=== PATIENT | female | born 1990 | race Caucasian/White ===

== ENCOUNTER 2017-01-10 14:05 | Emergency (ER) | payer MEDICAID ==
[~2017-01-10] VITALS: Ht 157.5 cm; Wt 64.0 kg
[2017-01-10 14:08] VITALS: Ht 157.5 cm; Wt 64.0 kg
[2017-01-10] MEDS ORDERED: ONDANSETRON 4 MG INJ IV STA (15:35)
[2017-01-10] MEDS ORDERED: DICYCLOMINE 10 MG CAP PO ONE (16:00)
[2017-01-10] MEDS ORDERED: SOD CHLORIDE 0.9% 1,000 ML IV ONE (16:00)
[2017-01-10 16:30] LABS: ADD SCAN DIFF NO
[2017-01-10 16:33] LABS: BASOPHILS % 0.3 % (0.0-2.0); EOSINOPHILS # 0.1 10^3/ul (0.0-0.5); EOSINOPHILS % 1.5 % (0.0-7.0); HEMATOCRIT 44.9 % (37.0-47.0); HEMOGLOBIN 14.6 g/dl (12.0-16.0); LYMPHOCYTES # 1.3 10^3/ul (0.8-2.9); LYMPHOCYTES % 15.2 % (15.0-51.0); MEAN CORPUSCULAR HEMOGLOBIN 28.6 pg (29.0-33.0); MEAN CORPUSCULAR HGB CONC 32.5 g/dl (32.0-37.0); MEAN CORPUSCULAR VOLUME 87.9 fl (82.0-101.0); MONOCYTE # 0.8 10^3/ul (0.3-0.9); MONOCYTES % 9.4 % (0.0-11.0); NEUTROPHIL # 6.3 10^3/ul (1.6-7.5); NEUTROPHILS % 73.3 % (39.0-77.0); PLATELET COUNT 330 10^3/UL (140-415); RED BLOOD COUNT 5.11 10^6/ul (4.20-5.40); WHITE BLOOD COUNT 8.7 10^3/ul (4.8-10.8)
[2017-01-10 16:36] LABS: ADD UMIC YES; URINE BILIRUBIN (Dip) NEGATIVE (NEGATIVE); URINE BLOOD (Dip) TRACE (NEGATIVE); URINE COLOR LT. YELLOW (YELLOW); URINE GLUCOSE (Dip) NEGATIVE (NEGATIVE); URINE KETONES (Dip) NEGATIVE (NEGATIVE); URINE LEUKOCYTE ESTERASE (Dip) 1+ (NEGATIVE); URINE NITRITE (Dip) NEGATIVE (NEGATIVE); URINE TOTAL PROTEIN (Dip) NEGATIVE (NEGATIVE); URINE UROBILINOGEN (Dip) 0.2 E.U./dL (0.1-1.0)
[2017-01-10 16:53] LABS: ALBUMIN 5.2 g/dl (3.3-4.9); ALBUMIN/GLOBULIN RATIO 1.4; BILIRUBIN,INDIRECT 0.3 mg/dl (0-1.1); BILIRUBIN,TOTAL 0.3 mg/dl (0.2-1.3); CALCIUM 9.5 mg/dl (8.4-10.2); CREATININE 0.74 mg/dl (0.44-1.00); POTASSIUM 3.8 mmol/L (3.5-5.1); TOTAL PROTEIN 8.9 g/dl (6.1-8.1)
[2017-01-10 16:59] LABS: SQUAMOUS EPITHELIAL CELL,UR MODERATE; URINE RBCS NONE SEEN /HPF (0)
[2017-01-10] MEDS ORDERED: NITR-58 PO (17:31)
[2017-01-10] MEDS ORDERED: DICY10CA60 PO (17:32)
[2017-01-10] MEDS ORDERED: ONDA-43 PO (17:32)
--- NOTE | 2017-01-10 17:39 | ERD ---
ER Documentation Chief Complaint Date/Time DATE: 01/10/17 TIME: 17:36 Chief Complaint n/v/d x 2 days not alliviated by over the counter meds HPI This is a 18-year-old female presents to the ER with nausea vomiting diarrhea for the last 2 days. Vomiting is nonbilious nonbloody. Diarrhea is watery with no blood in it. Patient to try [id number] antidiarrheal meds however they did not work. Patient states that today she feels dizzy and weak. Patient denies any fevers or chills. She does admit to body pain. She has not traveled anywhere. ROS 12 point review of systems was done, all negative except per HPI. Medications Home Meds Active Scripts Dicyclomine Hcl* (Bentyl*) 10 Mg Capsule, 10 MG PO QID for 7 Days, CAP Prov:MAGY DUNBAR 01/10/17 Ondansetron Hcl* (Zofran*) 4 Mg Tab, 4 MG PO Q4H Y for NAUSEA AND OR VOMITING for 3 Days, TAB Prov:MAGY DUNBAR 01/10/17 Nitrofurantoin Monohyd Macrocr* (Macrobid*) 100 Mg Capsr, 100 MG PO BID for 7 Days, CAP Prov:MAGY DUNBAR 01/10/17 PMhx/Soc History of Surgery: Yes (c/s appendix) Hx Respiratory Disorders: Yes (asthma) Hx Miscellaneous Medical Probl: Yes (hypothyroid) Hx Alcohol Use: No Hx Substance Use: No Hx Tobacco Use: No Smoking Status: Never smoker Physical Exam Vitals Vital Signs Date Time Temp Pulse Resp B/P Pulse Ox O2 Delivery O2 Flow Rate FiO2 01/10/17 14:08 98.5 76 18 109/75 99 Physical Exam GENERAL: The patient is well-developed, well-nourished, in no acute distress. NECK: Cervical spine is non tender with no step off. Supple, no nuchal rigidity HEENT: Atraumatic. Pupils equal, round and reactive to light. Extraocular muscles are grossly intact. Conjunctivae pink, no discharge. The oropharynx is clear with no erythema or exudates and the mucosa is moist. No signs of dehydration. RESPIRATORY: Clear to auscultation bilaterally. There are no rales, wheezes or rhonchi. HEART: Regular rate and rhythm. No murmurs, clicks, rubs or gallops. ABDOMEN: Soft, nontender, nondistended. Active bowel sounds in all 4 quadrants. No rebounding or guarding. Negative McBurney point tenderness. NEUROLOGIC: Alert and oriented. SKIN: There is no rash. The skin is warm and dry. Normal capillary refill. Result Diagram: 01/10/17 1614 01/10/17 1614 Results 24 hrs Laboratory Tests Test 01/10/17 16:14 White Blood Count 8.710^3/ul Red Blood Count 5.1110^6/ul Hemoglobin 14.6g/dl Hematocrit 44.9% Mean Corpuscular Volume 87.9fl Mean Corpuscular Hemoglobin 28.6pg Mean Corpuscular Hemoglobin Concent 32.5g/dl Red Cell Distribution Width 13.0% Platelet Count 94670^3/UL Mean Platelet Volume 10.0fl Neutrophils % 73.3% Lymphocytes % 15.2% Monocytes % 9.4% Eosinophils % 1.5% Basophils % 0.3% Nucleated Red Blood Cells % 0.0/100WBC Neutrophils # 6.310^3/ul Lymphocytes # 1.310^3/ul Monocytes # 0.810^3/ul Eosinophils # 0.110^3/ul Basophils # 0.010^3/ul Nucleated Red Blood Cells # 0.010^3/ul Urine Color LT. YELLOW Urine Clarity CLEAR Urine pH 5.5 Urine Specific [place] <=1.005 Urine Ketones NEGATIVE Urine Nitrite NEGATIVE Urine Bilirubin NEGATIVE Urine Urobilinogen 0.2 E.U./dL Urine Leukocyte Esterase 1+ Urine Microscopic RBC NONE SEEN/HPF Urine Microscopic WBC 0-2/HPF Urine Squamous Epithelial Cells MODERATE Urine Hemoglobin TRACE Urine Glucose NEGATIVE% Urine Total Protein NEGATIVE Sodium Level 136mmol/L Potassium Level 3.8mmol/L Chloride Level 103mmol/L Carbon Dioxide Level 22mmol/L Anion Gap 15 Blood Urea Nitrogen 11mg/dl Creatinine 0.74mg/dl Glucose Level 78mg/dl Calcium Level 9.5mg/dl Total Bilirubin 0.3mg/dl Direct Bilirubin 0.00mg/dl Indirect Bilirubin 0.3mg/dl Aspartate Amino Transf (AST/SGOT) 23IU/L Alanine Aminotransferase (ALT/SGPT) 25IU/L Alkaline Phosphatase 93IU/L Total Protein 8.9g/dl Albumin 5.2g/dl Globulin 3.70g/dl Albumin/Globulin Ratio 1.40 Current Medications Medications (Trade) Dose Ordered Sig/Juliette Route PRN Reason Start Time Stop Time Status Last Admin Dose Admin Ondansetron HCl (Zofran Inj) 4 mg ONCE STAT IV 01/10/17 15:35 01/10/17 15:37 DC 01/10/17 16:06 Dicyclomine HCl 10 mg 10 mg ONCE ONCE PO 01/10/17 16:00 01/10/17 16:01 DC 01/10/17 16:07 Sodium Chloride (NS) 1,000 ml @ 1,000 mls/hr Q1H ONCE IV 01/10/17 16:00 01/10/17 16:59 DC 01/10/17 16:07 Procedures/MDM Differential Diagnosis includes but is not limited to; Acute gastroenteritis, post-tussive vomiting, small bowel obstruction, appendicitis, DKA, ICH, meningitis. This is likely viral gastroenteritis. Patient appears well- hydrated and was given fluids in the ER.. Clinical suspicion for infectious etiology such as meningitis is low as patient does not appear toxic. Clinical suspicion for acute abdomen is low as physical examination is benign. Patient will be treated for urinary tract infection that was found in the ER. Patient is to follow-up with his primary care doctor within 1-2 days return to ER sooner if symptoms she understands and agrees with Departure Diagnosis: Primary Impression: Nausea vomiting and diarrhea Additional Impression: UTI (urinary tract infection) Condition: Stable Patient Instructions: Understanding Urinary Tract Infections (UTIs) Additional Instructions: Call your primary care doctor TOMORROW for an appointment during the next 1-2 days.See the doctor sooner or return here if your condition worsens before your appointment time. MAGY DUNBAR January 10, 2017 17:39
[2017-01-10 18:27] VITALS: BP 98/56; PULSE 79; RESP 18; TEMP 98.4
== END 2017-01-10 18:27 | disposition home or self-care (01) ==
LOC: FTE 14:05
DX: R11.2 Nausea with vomiting, unspecified (principal); R19.7 Diarrhea, unspecified; N39.0 Urinary tract infection, site not specified; J45.909 Unspecified asthma, uncomplicated; E03.9 Hypothyroidism, unspecified
CPT/HCPCS: 80053; 81001; 85025; J2405; J7030; Z7610; 96361; 96374